=== PATIENT | female | born 1995 | race Caucasian/White ===

== ENCOUNTER 2024-09-28 17:51 | Emergency (ER) | payer OTHER ==
[~2024-09-28] VITALS: Ht 154.9 cm; Wt 102.1 kg
[2024-09-28 18:54] LABS: BASO # 0.1 10*3/uL (0.0-0.1); BASO % 0.7 % (0.0-1.0); EOS # 0.4 10*3/uL (0.0-0.4); EOS % 4.2 % (1.0-4.0); HEMATOCRIT 40.2 % (37.0-47.0); MEAN CELL VOLUME 81.9 fl (81.0-99.0); MEAN CORPUSCULAR HGB 25.5 pg (27.0-31.0); MEAN CORPUSCULAR HGB CONC 31.1 g/dl (33.0-37.0); MEAN PLATELET VOLUME 9.7 fl (9.6-12.3); MONO # 0.7 10*3/uL (0.1-1.0); MONO % 7.7 % (3.0-9.0); NEUT # 4.9 10*3/uL (2.3-7.9); NEUT % 53.6 % (47.0-73.0); PLATELET COUNT AUTOMATED 287 10*3/uL (130-400); RED BLOOD COUNT 4.91 10*6/uL (4.10-5.10); RED CELL DISTRI WIDTH 13.7 % (0-14.5); WHITE BLOOD COUNT 9.1 10*3/uL (4.8-10.8)
[2024-09-28 18:54] LABS: BILIRUBIN Negative (Negative); BLOOD Negative (Negative); CLARITY Clear (Clear); COLOR Yellow (Yellow); GLUCOSE Negative (Negative); KETONE Trace (Negative); LEUKO ESTERASE 2+ (Negative); NITRITE Negative (Negative)
[2024-09-28 19:08] LABS: BACTERIA 1+; MUCOUS 1+; WBC 31-40 wbc/hpf (0-5)
[2024-09-28 19:10] LABS: BUN 9 mg/dl (9-23); CHLORIDE 107 mmol/L (98-107); POTASSIUM 3.4 mmol/L (3.4-5.1)
[2024-09-28] MEDS ORDERED: CEPHALEXIN500 M1 PO (21:08)
[2024-09-28] MEDS ORDERED: CEPHALEXIN 500 MG CAP PO ONE (21:10)
== END 2024-09-28 21:18 | disposition home or self-care (01) ==
LOC: ED 17:51
PROVIDERS: Nurse Practitioner Family
DX: N39.0 Urinary tract infection, site not specified (principal)

== ENCOUNTER 2024-11-18 13:46 | Emergency (ER) | payer OTHER ==
[~2024-11-18] VITALS: Ht 154.9 cm; Wt 97.1 kg
[~2024-11-18 13:46] MED LIST: CEPHALEXIN500 M1 PO
[2024-11-18] MEDS ORDERED: PREDNISONE20 M1 PO (14:59)
[2024-11-18] MEDS ORDERED: methylPREDNISolone sod succ 125 MG VIAL IM ONE (15:00)
[2024-11-18] MEDS ORDERED: Acetaminophen/Hydrocodone 5 MG/325 MG TABLET PO ONE (15:00)
== END 2024-11-18 15:13 | disposition home or self-care (01) ==
LOC: ED 13:46
DX: S86.911A Strain of unspecified muscle(s) and tendon(s) at lower leg level, right leg, initial encounter (principal); X58.XXXA Exposure to other specified factors, initial encounter; Y93.89 Activity, other specified; Y92.89 Other specified places as the place of occurrence of the external cause; Y99.8 Other external cause status

== ENCOUNTER 2024-12-19 09:10 | Emergency (ER) | payer OTHER ==
[~2024-12-19] VITALS: Ht 154.9 cm; Wt 94.1 kg
[~2024-12-19 09:10] MED LIST changes: +PREDNISONE20 M1 PO
[2024-12-19 10:09] LABS: BILIRUBIN Negative (Negative); BLOOD Negative (Negative); CLARITY Cloudy (Clear); COLOR Yellow (Yellow); GLUCOSE Negative (Negative); KETONE Trace (Negative); LEUKO ESTERASE 3+ (Negative); NITRITE Negative (Negative)
[2024-12-19 10:39] LABS: BACTERIA 4+; EPITHELIAL CELLS 31-40; WBC TNTC wbc/hpf (0-5)
[2024-12-19] MEDS ORDERED: SEPTDS PO (13:36)
== END 2024-12-19 13:39 | disposition home or self-care (01) ==
LOC: ED 09:10
PROVIDERS: Emergency Medicine
DX: N39.0 Urinary tract infection, site not specified (principal); R11.0 Nausea

== ENCOUNTER 2025-02-20 15:40 | Emergency (ER) | payer OTHER ==
[~2025-02-20] VITALS: Wt 93.9 kg
[~2025-02-20 15:40] MED LIST changes: +SEPTDS PO
[2025-02-20] MEDS ORDERED: AVPAK AZITHROM250 MG PO (18:11)
[2025-02-20] MEDS ORDERED: MEDROL DOSEPAK4 MG PO (18:11)
== END 2025-02-20 18:17 | disposition home or self-care (01) ==
LOC: ED 15:40
DX: J40 Bronchitis, not specified as acute or chronic (principal); Z20.822 Contact with and (suspected) exposure to COVID-19; Z79.899 Other long term (current) drug therapy

== ENCOUNTER 2025-04-07 01:39 | Emergency (ER) | payer OTHER ==
[~2025-04-07] VITALS: Wt 93.9 kg
[~2025-04-07 01:39] MED LIST changes: +AVPAK AZITHROM250 MG PO; +MEDROL DOSEPAK4 MG PO
[2025-04-07] MEDS ORDERED: NAPROSYN500 MG PO (02:09)
[2025-04-07] MEDS ORDERED: PREDNISONE20 M1 PO (02:09)
[2025-04-07] MEDS ORDERED: METHOCARBAMOL750 M1 PO (02:09)
[2025-04-07] MEDS ORDERED: METHOCARBAMOL 750 MG TAB PO ONE (02:10)
[2025-04-07] MEDS ORDERED: Dexamethasone Sodium Phospha 20 MG/5 ML VIAL IM ONE (02:10)
[2025-04-07] MEDS ORDERED: Ketorolac Tromethamine 60 MG/2 ML VIAL IM ONE (02:10)
== END 2025-04-07 02:24 | disposition home or self-care (01) ==
LOC: ED 01:39
DX: S46.912A Strain of unspecified muscle, fascia and tendon at shoulder and upper arm level, left arm, initial encounter (principal); S39.012A Strain of muscle, fascia and tendon of lower back, initial encounter; Z79.899 Other long term (current) drug therapy; X58.XXXA Exposure to other specified factors, initial encounter; Y93.89 Activity, other specified; Y92.89 Other specified places as the place of occurrence of the external cause; Y99.8 Other external cause status

== ENCOUNTER → 2025-04-16 | Outpatient (CLI) | payer OTHER ==
[~2025-04-16] MED LIST changes: +METHOCARBAMOL750 M1 PO; +NAPROSYN500 MG PO
[2025-04-16 12:21] LABS: BASO # 0.1 10*3/uL (0.0-0.1); BASO % 0.6 % (0.0-1.0); EOS # 0.3 10*3/uL (0.0-0.4); EOS % 3.6 % (1.0-4.0); MEAN CELL VOLUME 80.5 fl (81.0-99.0); MEAN CORPUSCULAR HGB 24.9 pg (27.0-31.0); MONO # 0.7 10*3/uL (0.1-1.0); NEUT # 3.9 10*3/uL (2.3-7.9); NEUT % 50.3 % (47.0-73.0); PLATELET COUNT AUTOMATED 227 10*3/uL (130-400); RED BLOOD COUNT 4.97 10*6/uL (4.10-5.10); RED CELL DISTRI WIDTH 14.3 % (0-14.5); WHITE BLOOD COUNT 7.8 10*3/uL (4.8-10.8)
[2025-04-16 12:50] LABS: ALKALINE PHOSPHATASE 46 U/L (46-116); BUN 11 mg/dl (9-23); CHLORIDE 105 mmol/L (98-107); CHOLESTEROL 182 mg/dL (<200); LDL CHOLESTEROL 116 mg/dL (9-159); POTASSIUM 3.8 mmol/L (3.4-5.1); SGPT/ALT 13 U/L (5-49); TRIGLYCERIDES 162 mg/dl (<150)
== END | disposition home or self-care (01) ==
LOC: LAB 11:26
PROVIDERS: ATTEND Nurse Practitioner Family
DX: Z13.1 Encounter for screening for diabetes mellitus (principal); Z13.0 Encounter for screening for diseases of the blood and blood-forming organs and certain disorders involving the immune mechanism; Z13.29 Encounter for screening for other suspected endocrine disorder; Z13.220 Encounter for screening for lipoid disorders

== ENCOUNTER 2025-07-16 01:26 | Emergency (ER) | payer OTHER ==
[~2025-07-16] VITALS: Wt 110.2 kg
[2025-07-16] MEDS ORDERED: BUSPAR15 MG PO (01:38)
[2025-07-16] MEDS ORDERED: FLUOXETINE HYDR20 M1 PO (01:38)
[2025-07-16] MEDS ORDERED: TOPIRAMATE25 M3 PO (01:39)
[2025-07-16] MEDS ORDERED: Acetaminophen/Hydrocodone 5 MG/325 MG TABLET PO ONE (01:45)
[2025-07-16] MEDS ORDERED: PENICILLIN V POTASSIUM 500 MG TAB PO ONE (01:45)
[2025-07-16] MEDS ORDERED: Ondansetron Hydrochloride 4 MG TAB SL ONE (01:50)
[2025-07-16] MEDS ORDERED: PENICILLIN VK500 MG PO (01:50)
== END 2025-07-16 01:58 | disposition home or self-care (01) ==
LOC: ED 01:26
DX: K02.9 Dental caries, unspecified (principal); K08.89 Other specified disorders of teeth and supporting structures; F41.9 Anxiety disorder, unspecified; F32.A Depression, unspecified; F98.8 Other specified behavioral and emotional disorders with onset usually occurring in childhood and adolescence; F90.9 Attention-deficit hyperactivity disorder, unspecified type

== ENCOUNTER 2025-07-21 13:29 | Emergency (ER) | payer OTHER ==
[~2025-07-21] VITALS: Ht 154.9 cm; Wt 110.2 kg
[~2025-07-21 13:29] MED LIST changes: +BUSPAR15 MG PO; +FLUOXETINE HYDR20 M1 PO; +PENICILLIN VK500 MG PO; +TOPIRAMATE25 M3 PO
[2025-07-21] MEDS ORDERED: ACETAMINOPHEN 325 MG TAB PO ONE (13:55)
[2025-07-21] MEDS ORDERED: SODIUM CHLORIDE 0.9% 1,000 ML IV ONE (13:55)
[2025-07-21 14:13] LABS: BASO # 0.0 10*3/uL (0.0-0.1); BASO % 0.8 % (0.0-1.0); EOS # 0.2 10*3/uL (0.0-0.4); EOS % 3.6 % (1.0-4.0); MEAN CELL VOLUME 79.6 fl (81.0-99.0); MEAN CORPUSCULAR HGB 24.5 pg (27.0-31.0); MEAN PLATELET VOLUME 9.8 fl (9.6-12.3); MONO # 0.6 10*3/uL (0.1-1.0); MONO % 11.8 % (3.0-9.0); NEUT # 3.7 10*3/uL (2.3-7.9); NEUT % 71.0 % (47.0-73.0); NUCLEATED RED BLOOD CELL 0.0 % (0.0-0.0); NUCLEATED RED BLOOD CELL 0.0 10*3/uL (0.0-0.0); PLATELET COUNT AUTOMATED 178 10*3/uL (130-400); RED CELL DISTRI WIDTH 13.7 % (0-14.5)
[2025-07-21 14:32] LABS: BUN 10 mg/dl (9-23)
[2025-07-21 15:15] LABS: BILIRUBIN Negative (Negative); BLOOD Negative (Negative); CLARITY Turbid (Clear); COLOR Yellow (Yellow); KETONE Trace (Negative); LEUKO ESTERASE Trace (Negative); NITRITE Negative (Negative); PH 5.5 (4.5-8.0); SPECIFIC GRAVITY >= 1.030 (1.001-1.030); UROBILINOGEN 1.0 E.U./dl (0.0-1.0)
[2025-07-21 15:49] LABS: BACTERIA TRACE; EPITHELIAL CELLS 21-30; RBC 0-2 rbc/hpf (0-2)
[2025-07-21] MEDS ORDERED: CLEOCIN HCL150 MG PO (15:57)
== END 2025-07-21 17:32 | disposition home or self-care (01) ==
LOC: ED 13:29
PROVIDERS: Nurse Practitioner Family
DX: K04.7 Periapical abscess without sinus (principal); Z79.899 Other long term (current) drug therapy; Z98.890 Other specified postprocedural states; Z20.822 Contact with and (suspected) exposure to COVID-19